=== PATIENT | female | born 1970 | race Caucasian/White ===

== ENCOUNTER 2023-03-25 09:39 | Emergency (ER) | payer OTHER ==
[2023-03-25 09:49] VITALS: BP 131/83; PULSE 72; RESP 18; TEMP 98.2; BMI 28.5
[2023-03-25 11:09] LABS: BASO % 0.7 % (0-2.0); EOS % 2.8 % (0-4.5); HEMATOCRIT 35.4 % (32.4-45.2); HEMOGLOBIN 11.8 GM/dL (10.7-15.3); LYMPH % 36.5 % (8-40); MCH 31.5 pg (25.7-33.7); MCHC 33.3 g/dl (32.0-36.0); MEAN CELL VOLUME 94.7 fl (80-96); MEAN PLT VOLUME 9.5 fl (7.5-11.1); MONO % 5.9 % (3.8-10.2); NEUT % 54.1 % (42.8-82.8); PLATELET COUNT 222 10^3/uL (134-434); RBC 3.74 M/mm3 (3.60-5.2); RDW 12.4 % (11.6-15.6); WHITE BLOOD COUNT 5.4 K/mm3 (4.0-10.0)
[2023-03-25 11:20] LABS: POTASSIUM 3.9 mmol/L (3.5-5.1)
[2023-03-25 11:22] LABS: ALBUMIN 3.8 g/dl (3.4-5.0); CALCIUM 9.4 mg/dL (8.5-10.1)
[2023-03-25 11:25] LABS: CREATININE 0.8 mg/dL (0.55-1.3)
[2023-03-25 11:27] LABS: BILIRUBIN,TOTAL 0.2 mg/dL (0.2-1); TOT PROT 7.2 g/dl (6.4-8.2)
[2023-03-25] MEDS ORDERED: SODIUM CHLORIDE 1,000 ML IV ONE (11:50)
[2023-03-25] MEDS ORDERED: MECLIZINE HCL 25 MG TABLET (FP) PO ONE (11:50)
[2023-03-25] MEDS ORDERED: MECLIZINE HCL 25 MG TABLET (FP) ONE (11:53)
== END 2023-03-25 13:15 | disposition home or self-care (01) ==
LOC: JER 09:39
PROC: 3E0337Z Introduction of Electrolytic and Water Balance Substance into Peripheral Vein, Percutaneous Approach (ICD-10-PCS; principal; 2023-03-25)
DX: R42 Dizziness and giddiness (principal); R51.9 Headache, unspecified; R11.2 Nausea with vomiting, unspecified; L29.9 Pruritus, unspecified; R07.0 Pain in throat
CPT/HCPCS: 36415; 80053; 82962; 84484; 85025; 93005; 93010; 99284-25